=== PATIENT | male | born 1965 | race Caucasian/White ===

== ENCOUNTER → 2017-12-26 12:11 | Outpatient (CLI) | payer OTHER, SELFPAY ==
--- NOTE | 2017-12-26 | DI.CT.S_ITS ---
PROCEDURE: CT SINUS SCREEN WO CON INDICATIONS: SINUS PAIN TECHNIQUE: Noncontrast 3.0 mm axial images acquired from the frontal sinuses to the mid-sella, with coronal and sagittal reformats. For radiation dose reduction, the following was used: automated exposure control, adjustment of mA and/or kV according to patient size. COMPARISON: None. FINDINGS: Image quality: Excellent. Maxillary Sinuses: No bony remodeling or destruction. Sinuses are clear. Ethmoid Air Cells: No bony remodeling or destruction. Sinuses are clear. Sphenoid Sinuses: No bony remodeling or destruction. Sinuses are clear. Frontal Sinuses: No bony remodeling or destruction. Sinuses are clear. Ostiomeatal Complexes: Ostiomeatal complexes are patent, yet they are constitutionally narrowed. There are bilateral Michael cells. Miscellaneous: Visualized intra-orbital contents are normal. No archie bullosa or paradoxical turbinate curvature. There is mild S-shaped nasal septal deviation. IMPRESSION: Constitutionally narrowed ostiomeatal complexes, with bilateral Michael cells. Mild S-shaped nasal septal deviation. No significant active paranasal sinus disease is seen. Dictated by: Juan Lorenzo M.D. on 12/26/2017 at 12:24 Approved by: Juan Lorenzo M.D. on 12/26/2017 at 12:26
== END ==
PROVIDERS: PCP Family Medicine; Visit Provider Family Medicine
DX: J34.89 Other specified disorders of nose and nasal sinuses (principal); M45.0 Ankylosing spondylitis of multiple sites in spine
CPT/HCPCS: 70486